=== PATIENT | male | born 1955 | race Caucasian/White ===

== ENCOUNTER 2017-01-21 11:46 | Emergency (ER) | payer MEDICARE, OTHER | END 2017-01-21 13:50 | disposition home or self-care (01) | LOC: FER 11:46 | DX: S46.912A Strain of unspecified muscle, fascia and tendon at shoulder and upper arm level, left arm, initial encounter (principal); M47.812 Spondylosis without myelopathy or radiculopathy, cervical region; E78.5 Hyperlipidemia, unspecified; F17.210 Nicotine dependence, cigarettes, uncomplicated; Z88.8 Allergy status to other drugs, medicaments and biological substances; Z79.899 Other long term (current) drug therapy; Z86.73 Personal history of transient ischemic attack (TIA), and cerebral infarction without residual deficits | CPT/HCPCS: 72125; 73030; J1885; J2930 ==

== ENCOUNTER → 2017-07-26 | Day surgery (SDC) | payer MEDICARE, OTHER ==
[~2017-07-26] VITALS: Ht 180.3 cm; Wt 66.9 kg
== END | disposition home or self-care (01) ==
LOC: FAS 06:39
DX: K40.90 Unilateral inguinal hernia, without obstruction or gangrene, not specified as recurrent (principal); D17.79 Benign lipomatous neoplasm of other sites; Z88.8 Allergy status to other drugs, medicaments and biological substances; E78.5 Hyperlipidemia, unspecified; F17.210 Nicotine dependence, cigarettes, uncomplicated
CPT/HCPCS: C1781; J1885; J2405; J2704; J3010